=== PATIENT | female | born 1990 | race Caucasian/White ===

== ENCOUNTER 2016-11-04 05:40 | Inpatient (IN) ==
[2016-11-04] MEDS ORDERED: CITRIC ACID/SODIUM CITRATE 30 ML UDCUP PO ONE (05:57)
[2016-11-04] MEDS ORDERED: ceFAZolin 2,000 MG in PREMIX 1 EACH IV ONE (05:57)
[2016-11-04] MEDS ORDERED: FAMOTIDINE 20 MG/2 ML VIAL IV ONE (05:57)
[2016-11-04] MEDS ORDERED: OXYTOCIN/LR 20 UNIT/1,000 ML BAG IV ONE ×2 (05:58→08:20)
[2016-11-04] MEDS: LACTATED RINGERS 1,000 ML IV SCH ×3 (06:18→14:05)
[2016-11-04 06:19] LABS: Basophils % 0.2 % (0.0-0.8); Eosinophils # 0.1 10*3/uL (0.0-0.87); Eosinophils % 0.5 % (0.00-10.9); Hematocrit 31.6 VOL% (35.7-47.0); Hemoglobin 10.1 GM/DL (12.0-16.0); Immature Granulocytes % 0.8 %; Immature Granulocytes Absolute 0.08 #; Lymphocytes # 2.5 10*3/uL (1.4-4.0); Lymphocytes % 25.7 % (21.3-54.2); Mean Corpuscular Hemoglobin 21 PG (27-34); Mean Corpuscular Volume 65.7 FL (87-102); Mean Platelet Volume 10.3 FL (9.6-12.0); Monocytes # 0.7 10*3/uL (0.11-0.8); Monocytes % 7.1 % (1.7-12.7); Neutrophils # 6.3 10*3/uL (1.4-7.4); Neutrophils % 65.7 % (38.7-73.9); Platelet Count 313 T/CUMM (130-400); Red Blood Count 4.81 MC/CUMM (3.8-5.5); Red Cell Distribution Width 17.1 % (9.3-17.3); White Blood Count 9.6 T/CUMM (4-12)
[2016-11-04 06:55] LABS: Albumin 2.7 G/DL (3.4-5.0); Bilirubin,Total 0.8 MG/DL (0.2-1.0); Calcium 8.6 MG/DL (8.5-10.1); Osmolality,Calculated 267.1 MOS/KG (273-304); Potassium 3.9 MMOL/L (3.5-5.1); Total Protein 6.1 G/DL (6.4-8.3)
--- NOTE | 2016-11-04 07:12 | OB/GYN History & Physical ---
History of Present Illness Chief complaint: 39 weeks previous History of present illness: Ms. Smallwood is a 26 year old female Previous 39 weeks admitted for elective repeat . The risks benefits and alternatives were explained patient detail and informed us is obtained for the above procedures and all patient's questions were answered to her satisfaction Home Medications Medication Instructions Recorded Confirmed Type No122/Iron/Folic Acid 1 tablet PO DAILY 11/04/16 11/04/16 History [ Multi Tablet] Allergies Allergy/AdvReac Type Severity Reaction Status Date / Time ketorolac [From Toradol] Allergy Mild HIVES Verified 09/12/15 16:09 12 point system: reviewed and no additional remarkable complaints except as stated Medical,Surgical,& Family Hx - Medical History Neurology: No history of: Seizures HEENT: History of: Eye Problem (GLASSES) Reproductive: History of: Endometriosis (HX OF DX LAP), Ovarian Cysts No history of: Ectopic , Complication, Reproductive Problems - Surgical History Reproductive Surgeries: Surgical HX of;: Section - Family History Family History: Reports;: Family Cancer (GRANDMOTHER GRANDFATHER), Family Diabetes (GRANDMOTHERS GRANDFATHER, DAD), Family Hypertension (GRANDFATHER AND DAD) Denies;: Family Anesthesia Reaction, Family Heart Disease, Family Hematology , Family Psychiatric Problems, Family Stroke, Additional Family History - Social History Smoking Status: Never smoker Frequency of Alcohol Use: None Type of Drug Use: None 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: Vital Signs Temp Pulse Resp BP 11/04/16 05:46 97.8 F 87 20 128/75 General appearance: no acute distress - Head Head exam: Present: normal inspection, normocephalic, atraumatic - Eye Eye exam: Present: EOMI - Neck Neck exam: Present: normal inspection - Respiratory Respiratory exam: Present: clear to auscultation bilaterally - Breast Breasts: as per HPI Menstruation: as per HPI - Cardiovascular Cardiovascular exam: Present: regular rate and rhythm - GI/Abdominal GI/Abdominal exam: Present: normal bowel sounds - Extremities Exam Extremities exam: Present: normal inspection, normal capillary refill - Back Exam Back exam: Present: normal inspection - Neurological Exam Neurological exam: Present: alert, oriented X3 - Psychiatric Psychiatric exam: Present: normal affect, normal mood - Skin Skin exam: Present: normal color Assessment and Plan (1) with 39 completed weeks gestation Status: Acute Current Visit: Yes (2) Previous section Status: Acute Current Visit: Yes Results - Labs CBC & BMP: 11/04/16 06:08 11/04/16 06:08
--- NOTE | 2016-11-04 08:19 | Operative Note ---
Date of procedure: 11/04/16 Pre-op diagnosis: 39 weeks previous Post-op diagnosis: same Procedure: This is Dr. Stewart dictating operative note: Preoperative diagnosis 1. Intrauterine intrauterine at [39] weeks 2. Previous Postoperative diagnosis same Procedure repeat low transverse section Surgeon Dr. Stewart Anesthesia spinal Findings liveborn [male] 7 pounds 9 ounces Apgars 9 and 9 Complications none Estimated blood loss [400] mL Disposition patient to recovery room in [stable] condition. Infant to nursery in [stable] condition Operative description: After the risks benefits and alternatives were explained to the patient in detail and informed consent was obtained, the patient was taken to the operating room where she was placed in the supine position. After achieving appropriate anesthesia the abdomen was prepped and draped in the usual sterile fashion. A Larson catheter was placed without difficulty. After the appropriate time out and after adequate anesthesia was ascertained a Pfannenstiel skin incision was made and carried down through the subcutaneous tissue down to the fascia. The fascia was nicked in the midportion and undermined and incised both laterally and cephalad using sharp dissection with the curved Torres scissors. 2 Lima clamps were used to elevate the rectus fascia superiorly which was bluntly and sharply dissected away from the rectus muscle below. This was repeated inferiorly. The rectus muscles were then bluntly in the midline the peritoneum identified grasped with 2 curved hemostats and entered sharply using the curved Metzenbaum scissors. A bladder blade was then placed in the pelvis and a bladder flap was created off the lower uterine segment using sharp dissection with the Metzenbaum scissors. The bladder blade was then repositioned. A transverse incision was made across the lower uterine segment down to the amnion. Entry into the amnion revealed [ clear] amniotic fluid. The uterine incision was then extended laterally using bilateral finger fractionation. Upon palpation the presenting part was [vertex ] which was gently elevated out of the pelvis and delivered onto the abdominal wall using appropriate fundal pressure. The 's nose and oropharynx were bulb and DeLee suctioned and the infant had spontaneous cry delivery. The cord was doubly clamped and cut and the was handed over to the team for care. Cord blood was obtained. The placenta was delivered manually and IV Pitocin antibiotics and Zofran were begun. The uterus was then exteriorized and placed in a wet laparotomy sponge. 2 fingers wrapped around a wet laparotomy sponge were used to remove all residual membranes from the uterine cavity. The uterus was then closed in 2 layers. The first layer of myometrium was closed with #1 Monocryl suture in an inner locking fashion beginning at both angles and overlapping slightly in the midline. The second layer of myometrium was closed with #1 Monocryl suture in a running imbricating stitch beginning at the right angle and continuing the length of the uterine incision. Hemostasis was noted to be excellent. The posterior cul-de-sac was then irrigated and cleansed with a wet laparotomy sponge and the uterus was placed back in the abdominal cavity. Both pericolic gutters were then irrigated and cleansed with a wet lap sponge. The uterine incision was then re-irrigated and again noted to be hemostatic. All counts were noted to be correct. The subcutaneous tissue was then closed using 3-0 Vicryl suture in a running fashion. The subfascial area was made hemostatic using electrocautery and closed with #1 PDS suture in a running fashion beginning at both angles and overlapping slightly in the midline. The subcutaneous tissue was irrigated and made hemostatic using electrocautery and closed with 2-0 Vicryl suture in a running fashion and the skin was closed with wide skin fabiola and a sterile pressure bandage was applied to the wound. All sponge needle and instrument counts were correct -3 at the end of the procedure. The patient's urine was [ clear] both at the beginning in the end of the procedure. The patient was taken to the recovery room in stable condition Anesthesia: spinal Surgeon / Physician: Hawk Stewart Estimated blood loss: other (400) Specimens: none sent Condition: stable Disposition: floor Results - Labs CBC & BMP: 11/04/16 06:08 11/04/16 06:08 Discharge Plan - Discharge Medications No Action No122/Iron/Folic Acid [ Multi Tablet] 1 tablet PO DAILY - Follow Up or Referral - Forms/Instructions
[2016-11-04] MEDS ORDERED: MEASLES/MUMPS/RUBELLA VACCINE 0.5 ML VIAL SUBCUT ONE (08:20)
[2016-11-04] MEDS ORDERED: HYDROCORTISONE 2.5% RECTAL CREAM 30 GM TUBE TOP PRN (08:20)
[2016-11-04] MEDS ORDERED: WITCH HAZEL PADS 100/JAR TOP PRN (08:20)
[2016-11-04] MEDS ORDERED: RHO(D) IMMUNE GLOBULIN 300 MCG SYRINGE IM ONE (08:20)
[2016-11-04] MEDS ORDERED: DIPH/TET/ACEL PERT BOOSTER VACCINE 0.5 ML VIAL IM ONE (08:20)
[2016-11-04] MEDS ORDERED: LANOLIN 50% CREAM 0.3 OZ TUBE TOP PRN (08:20)
[2016-11-04] MEDS ORDERED: oxyCODONE/ACETAMINOPHEN 5-325 MG TABLET PO PRN (08:20)
[2016-11-04] MEDS ORDERED: BENZOCAINE 20%/MENTHOL 0.5% SPRAY 56 GM CAN TOP PRN (08:20)
[2016-11-04] MEDS ORDERED: BISACODYL 10 MG SUPP RECTAL PRN (08:20)
[2016-11-04] MEDS ORDERED: ePHEDrine 50 MG/ML AMP ONE (08:36)
[2016-11-04] MEDS ORDERED: MIDAZOLAM 2 MG/2 ML VIAL ONE (08:36)
[2016-11-04] MEDS ORDERED: MORPHINE 10 MG/10 ML VIAL ONE (08:36)
--- NOTE | 2016-11-04 08:48 | Anesthesia Post-Op ---
Anesthesia Post OP - Post Ansesthetic Evaluation Patient seen in post op: Yes Resp: within normal limits CV: within normal limits Mental: within normal limits Temp: within normal limits [id number]: within normal limits Nausea and Vomiting: within normal limits Pain: within normal limits
[2016-11-04 08:52] LABS: Apearance,Urine CLEAR (Clear); Bacteria,Urine Occasional /HPF (Few); Bilirubin,Urine Negative (Negative); Blood, Urine Negative (Negative); Glucose,Urine (UA) Negative (Negative); Ketones,Urine Negative (Negative); Mucus,Urine Occasional /LPF (Occasional); Nitrite,Urine Negative (Negative); Protein,Urine Negative; RBC,Urine 1 /HPF (0-4); Urine Color Straw (Yellow); Urine Specific Gravity 1.005 (1.001-1.035); Urine Urobilinogen < 2.0 EU/DL (0.2-1.0); WBC,Urine <1 /HPF (0-6)
[2016-11-04] MEDS ORDERED: ONDANSETRON 4 MG/2 ML VIAL IV PRN (08:53)
[2016-11-04] MEDS ORDERED: HYDROmorphone 2 MG/1 ML VIAL IV PRN (08:53)
[2016-11-04] MEDS ORDERED: diphenhydrAMINE 50 MG/1 ML VIAL IV PRN (08:53)
[2016-11-04] MEDS ORDERED: SODIUM CHLORIDE 0.9% 1,000 ML IV SCH (09:00)
[2016-11-04] MEDS ORDERED: LACTATED RINGERS 1,000 ML IV SCH (09:00)
[2016-11-04] MEDS: ACETAMINOPHEN 325 MG TABLET PO PRN ×2 (11:45→17:28)
[2016-11-04] MEDS: ONDANSETRON 4 MG/2 ML VIAL IV PRN ×3 (13:55→17:20)
[2016-11-04] MEDS: MULTIVITAMIN (PRENATAL) TABLET PO SCH (14:32)
[2016-11-04] MEDS: oxyCODONE/ACETAMINOPHEN 5-325 MG TABLET PO PRN (20:15)
[2016-11-04] MEDS: DOCUSATE SODIUM 100 MG CAPSULE PO SCH (21:12)
[2016-11-05] MEDS: LACTATED RINGERS 1,000 ML IV SCH (00:05)
[2016-11-05 05:42] LABS: Basophils % 0.2 % (0.0-0.8); Eosinophils # 0.1 10*3/uL (0.0-0.87); Eosinophils % 0.7 % (0.00-10.9); Hematocrit 26.8 VOL% (35.7-47.0); Hemoglobin 8.3 GM/DL (12.0-16.0); Immature Granulocytes % 0.5 %; Immature Granulocytes Absolute 0.05 #; Lymphocytes # 1.7 10*3/uL (1.4-4.0); Lymphocytes % 15.7 % (21.3-54.2); Mean Corpuscular Hemoglobin 21 PG (27-34); Mean Corpuscular Volume 67.5 FL (87-102); Mean Platelet Volume 10.1 FL (9.6-12.0); Monocytes # 0.8 10*3/uL (0.11-0.8); Monocytes % 7.4 % (1.7-12.7); Neutrophils # 8.3 10*3/uL (1.4-7.4); Neutrophils % 75.5 % (38.7-73.9); Platelet Count 268 T/CUMM (130-400); Red Blood Count 3.97 MC/CUMM (3.8-5.5); Red Cell Distribution Width 17.2 % (9.3-17.3)
[2016-11-05] MEDS: DOCUSATE SODIUM 100 MG CAPSULE PO SCH ×3 (07:52→20:48)
[2016-11-05] MEDS: IBUPROFEN 800 MG TABLET PO PRN ×2 (10:41→21:50)
--- NOTE | 2016-11-05 12:40 | OB/GYN Progress Note ---
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 She is tolerating her diet. She is alert and oriented -3 Cardiovascular regular rate and rhythm Lungs clear to auscultation Abdomen soft with appropriate tenderness and bowel sounds are present and her incision is dry no bleeding Is good refill HEENT shows pink conjunctiva assessment 1 day of surgery doing well Plan continue present management with expected DC in a.m. Exam EXECUTIVE STAFF ASSISTANT - Constitutional Vitals: Vital Signs Temp Pulse Resp BP Pulse Ox 11/05/16 11:10 97.1 F L 90 20 121/78 98 11/05/16 07:19 97.6 F 93 H 20 114/72 96 11/05/16 04:00 97.3 F L 93 H 18 104/64 96 11/05/16 03:00 18 11/05/16 02:00 17 11/05/16 00:00 97.5 F L 85 18 103/63 96 11/04/16 20:00 97.6 F 87 18 119/82 97 11/04/16 18:10 20 11/04/16 18:00 20 11/04/16 17:00 20 11/04/16 16:00 98.2 F 78 20 122/70 99 11/04/16 15:00 18 11/04/16 14:15 77 20 126/72 99 11/04/16 14:00 20 11/04/16 13:15 18 112/60 99 11/04/16 13:00 20 Results - Labs CBC & BMP: 11/05/16 05:36 11/04/16 06:08
[2016-11-05] MEDS: ACETAMINOPHEN 325 MG TABLET PO PRN (18:12)
[2016-11-05] MEDS: oxyCODONE/ACETAMINOPHEN 5-325 MG TABLET PO PRN (20:50)
[2016-11-06] MEDS: oxyCODONE/ACETAMINOPHEN 5-325 MG TABLET PO PRN (04:00)
[2016-11-06] MEDS ORDERED: MAGNESIUM HYDROXIDE SUSP 30 ML UDCUP PO ONE (07:46)
[2016-11-06] MEDS: IBUPROFEN 800 MG TABLET PO PRN (07:49)
[2016-11-06 07:51] VITALS: BP 122/69
[2016-11-06] MEDS: MULTIVITAMIN (PRENATAL) TABLET PO SCH (08:52)
[2016-11-06] MEDS: DOCUSATE SODIUM 100 MG CAPSULE PO SCH (08:52)
--- NOTE | 2016-11-06 09:54 | Discharge Summary ---
Hospital Course - Hospital Course Hospital Course: Postoperative the patient did well. She had quick return of bowel bladder function. Remained afebrile and normotensive throughout her hospitalization. She is constantly discharged on postoperative day #2 on a regular diet Diagnosis - Discharge Diagnosis (1) with 39 completed weeks gestation Status: Acute (2) Previous section Status: Acute Specialty Discharge - Follow Up or Referrals Discharge Plan - Discharge Data Disposition: Disch To Home/Self Care Condition at Discharge: Stable Discharge Diet: regular diet Activity: increase activity as tolerated, no lifting, other (Pelvic rest) Hygiene: may shower Weight Bearing at Discharge: full weight bearing Driving: not until seen by doctor Contact your physician if you experience:: fever over 101, Difficulty voiding, Redness or swelling, Nausea/Vomiting, Shortness of breath, Bleeding, pain uncontrolled by pain medications - Discharge Medications New oxyCODONE/ACETAMINOPHEN 5-325 [Percocet 5-325] 1 tablet PO Q4H PRN #20 tablet PRN Reason: Abdominal Pain oxyCODONE/ACETAMINOPHEN 5-325 [Percocet 5-325] 1 tablet PO Q6H PRN #20 tablet PRN Reason: Pain Severe (8-10) Ibuprofen Tab [Motrin Tab] 800 mg PO Q6H PRN tablet PRN Reason: Pain Moderate (4-7) Discontinued No122/Iron/Folic Acid [ Multi Tablet] 1 tablet PO DAILY - Follow Up or Referral Follow Up: Hawk Stewart MD [Physician] - 1 Week - Forms/Instructions Instructions: Section (DC), Perineal Care (DC), Bleeding (DC) Exam - Constitutional Vitals: Period Temp Pulse Resp BP Sys/Gallardo Pulse Ox Last 24 Hr 97.1 F-98.2 F 72-102 17-20 114-122/66-78 96-98 DS: Provider Date of admission: 11/04/16 07:11 Primary care physician: . No PCP Attending physician on admission: Ira Medrano Consults: 11/04/16 05:57 Consult to Anesthesiology [CONS] Routine Consulting Provider: Reason for Anesthesiology: Pre-op Clearance 11/04/16 08:20 Consult to Stack Matcher [CONS] Routine Consult Stack Matcher: Breast Feeding Discharging clinician: Ira Medrano Expected date of discharge: 11/06/16
== END 2016-11-06 11:50 | disposition home or self-care (01) | DRG 766 ==
LOC: N.LDOUT 05:40 → N.LD 05:46 → N.OB 11:34
PROVIDERS: ADMIT Specialist; ATTEND Specialist
PROC: LDCSECT (ICD-10-PCS; 2016-11-04 07:30)